=== PATIENT | male | born 1990 | race Hispanic/Latino ===

== ENCOUNTER 2020-06-04 16:17 | Observation (INO) | payer OTHER ==
[~2020-06-04] VITALS: Ht 180.3 cm; Wt 94.3 kg
[2020-06-04] MEDS ORDERED: ONDANSETRON 4MG/2ML VIAL IV ONE (16:45)
[2020-06-04] MEDS ORDERED: NS 1,000 ML IV ONE (16:45)
[2020-06-04 17:24] LABS: BASO % 0.6 % (0.0-1.0); EOS # 0.1 10^3/uL (0.0-0.5); EOS % 1.1 % (0.0-3.0); HEMATOCRIT 40.8 % (42.0-52.0); HEMOGLOBIN 13.5 g/dl (13.5-17.5); LYMPH # 1.4 10^3/uL (1.5-5.0); LYMPH % 26.1 % (24.0-44.0); MEAN CORPUSCULAR HEMOGLOBIN 29.8 pg (27.0-33.0); MEAN CORPUSCULAR HGB CONC 33.1 g/dl (32.0-36.5); MEAN CORPUSCULAR VOLUME 90.1 fl (80.0-96.0); MONO # 0.3 10^3/uL (0.0-0.8); MONO % 6.5 % (0.0-5.0); NEUTROPHILS # 3.4 10^3/uL (1.5-8.5); NEUTROPHILS % 64.7 % (36.0-66.0); PLATELET COUNT, AUTOMATED 252 10^3/uL (150-450); RED BLOOD COUNT 4.53 10^6/uL (4.30-6.10); WHITE BLOOD COUNT 5.2 10^3/uL (4.0-10.0)
[2020-06-04 17:26] LABS: RSV AMPLIFICATION NEGATIVE (NEGATIVE)
[2020-06-04 17:39] LABS: ALBUMIN 4.2 GM/DL (3.2-5.2); ALT/SGPT 62 U/L (12-78); BILIRUBIN,DIRECT 0.2 MG/DL (0.0-0.2); BILIRUBIN,TOTAL 0.6 MG/DL (0.2-1.0); BLOOD UREA NITROGEN 9 MG/DL (7-18); CALCIUM LEVEL 9.6 MG/DL (8.5-10.1); CARBON DIOXIDE LEVEL 32 MEQ/L (21-32); CHLORIDE LEVEL 105 MEQ/L (98-107); CREATININE FOR GFR 1.13 MG/DL (0.70-1.30); GLOMERULAR FILTRATION RATE > 60.0 (>60); GLUCOSE, FASTING 133 MG/DL (70-100); LIPASE 65 U/L (73-393); POTASSIUM SERUM 4.5 MEQ/L (3.5-5.1); SODIUM LEVEL 138 MEQ/L (136-145); TOTAL PROTEIN 8.1 GM/DL (6.4-8.2)
[2020-06-04] MEDS ORDERED: ISOVUE-370 76% 100ML VIAL As Ordered ONE (17:47)
--- NOTE | 2020-06-04 18:23 | REPVR ---
PROCEDURE INFORMATION: Exam: CT Abdomen And Pelvis With Contrast Exam date and time: 06/04/2020 5:45 PM Age: 30 years old Clinical indication: Abdominal pain; Additional info: L sided abd pain with n/v R/O infectious process TECHNIQUE: Imaging protocol: Computed tomography of the abdomen and pelvis with intravenous contrast. Radiation optimization: All CT scans at this facility use at least one of these dose optimization techniques: automated exposure control; mA and/or kV adjustment per patient size (includes targeted exams where dose is matched to clinical indication); or iterative reconstruction. Contrast material: ISOVUE 370; Contrast volume: 100 ml; Contrast route: INTRAVENOUS (IV); COMPARISON: No relevant prior studies available. FINDINGS: Liver: Normal. No mass. Gallbladder and bile ducts: Normal. No calcified stones. No ductal dilation. Pancreas: Normal. No ductal dilation. Spleen: Normal. No splenomegaly. Adrenal glands: Normal. No mass. Kidneys and ureters: Normal. No hydronephrosis. Stomach and bowel: Boggy appearance of the transverse and left colon with mural stratification and a suggestion of mild pericolonic inflammation. Findings suggest acute colitis to be evaluated clinically. No abscess demonstrated. Appendix: No evidence of appendicitis. Intraperitoneal space: Unremarkable. No free air. No significant fluid collection. Vasculature: Unremarkable. No abdominal aortic aneurysm. Lymph nodes: Unremarkable. No enlarged lymph nodes. Urinary bladder: Unremarkable as visualized. Reproductive: Unremarkable as visualized. Bones/joints: Mild central spinal stenosis L4-L5. Soft tissues: There is a small umbilical hernia. There is no evidence of incarceration. Small left inguinal hernia without incarceration. IMPRESSION: 1. Boggy appearance of the transverse and left colon with mural stratification and a suggestion of mild pericolonic inflammation. Findings suggest acute colitis to be evaluated clinically. No abscess demonstrated. 2. Small left inguinal hernia without incarceration. Electronically signed by: Alexandru Smith On 06/04/2020 18:23:20 PM
[2020-06-04] MEDS ORDERED: ONDA4TAB6 PO (18:28)
[2020-06-04] MEDS ORDERED: PROMETHAZINE INJ 25 MG/ML VIAL (J2550) IV ONE (19:15)
[2020-06-04] MEDS ORDERED: NS 1,000 ML IV SCH (20:30)
--- NOTE | 2020-06-04 21:43 | HPEPDOC ---
General Date of Admission Date of Service: Jun 04, 2020 Other Providers PCP is Mary Mujica on [address] Attending Physician: Shakeel Wright MD Chief Complaint The patient is a 30-year-old male admitted with a reason for visit of "I can't stop vomiting." Source: Patient Exam Limitations: No limitations History of Present Illness He was feeling well yesterday. This Am he woke with nausea and began vomiting. He has been vomiting intermittently all day and is unable to keep anything down. He has had several episodes of vomiting while in the ER including a large emesis during my interview. He denies any known sick contacts. Home Medications No Active Prescriptions or Reported Meds Allergies Coded Allergies: No Known Allergies (Unverified , 06/04/20) Past Medical History Medical History G6PD deficiency Surgical History none Family History Father was dx with colon cancer at 40 years of age Social History * Smoker: non-smoker Alcohol: other (only drinks on the weekends. He had two beers the night before admission.) Recent Travel/Sick Contacts: Denies: Recent travel lives in the [facility]. Has a roommate, but he is on leave at present. A-FIB/CHADSVASC A-FIB History Current/History of A-Fib/PAF?: No Current PO Anticoag Therapy: No Review of Systems Constitutional: Denies: Fever, Weight Loss ENT: Denies: Dysphagia, Sore Throat Skin: Denies: Rash, Jaundice Pulmonary: Denies: Dyspnea, Cough Cardiovascular: Denies: Chest Pain, Palpitations, Edema Gastrointestinal: Reports: Nausea, Vomiting, Abdominal Pain (L sided); Denies: Diarrhea, Melena, Hematochezia, Other Symptoms (hematemesis) Genitourinary: Denies: Dysuria, Hematuria Hematologic: Denies: Bleeding Excessively, Enlarged Lymph Nodes Endocrine: Denies: Polydipsia, Polyphagia, Polyuria Musculoskeletal: Denies: Neck Pain, Back Pain, Joint Pain, Muscle Pain, Spasms Neurological: Denies: Change in speech, Confusion Psych: Reports: Mood Normal; Denies: Depression, Memory Issues Physical Examination General Exam: Positive: Alert, Cooperative, No Acute Distress (he had an episode of vomiting while I was interviewing him) Eye Exam: Positive: PERRLA, Conjunctiva & lids normal; Negative: Sclera icteric ENT Exam: Positive: Atraumatic, Mucous membr. moist/pink, Pharynx Normal, Tympanic Membranes Normal, Ext Auditory Canal Nml, Other ENT (scattered palletal petechiae, likely related to recurrent vomiting) Neck Exam: Positive: Supple; Negative: Lymphadenopathy Chest Exam: Positive: Clear to auscultation, Normal air movement; Negative: Rhonchi, Wheezing Heart Exam: Positive: Rate Normal, Regular Rhythm, Normal S1, Normal S2; Negative: Murmurs, Rubs Abdomen Exam: Positive: BS Hypoactive, Soft, Tenderness (LUQ > LLQ), Hernia (he does have a L inguinal hernia on exam, but it is only noticable on cough/Valsalva. Not strangulated and not likely relevant to his ongoing issues.) ; Negative: Hepatospenomegaly Extremity Exam: Positive: Normal pulses; Negative: Cyanosis, Edema Skin Exam: Positive: Nl turgor and temperature; Negative: Rash Neuro Exam: Positive: Normal Gait, Normal Speech, Normal Tone Psych Exam: Positive: Mental status NL, Mood NL, Oriented x 3 Vital Signs Vital Signs Date Time Temp Pulse Resp B/P (MAP) Pulse Ox O2 Delivery O2 Flow Rate FiO2 06/04/20 17:04 78 117/74 (88) 80 130/77 (94) 88 126/74 (91) 06/04/20 16:18 98.0 20 98 Room Air Laboratory Data Labs 24H Laboratory Tests 2 06/04/20 16:32: Immature Granulocyte % (Auto) 1.0, Neutrophils (%) (Auto) 64.7, Lymphocytes (%) (Auto) 26.1, Monocytes (%) (Auto) 6.5H, Eosinophils (%) (Auto) 1.1, Basophils (%) (Auto) 0.6, Neutrophils # (Auto) 3.4, Lymphocytes # (Auto) 1.4L, Monocytes # (Auto) 0.3, Eosinophils # (Auto) 0.1, Basophils # (Auto) 0.0, Nucleated Red Blood Cells % (auto) 0.0, Anion Gap 1L, Glomerular Filtration Rate > 60.0, Calcium Level 9.6, Total Bilirubin 0.6, Direct Bilirubin 0.2, Aspartate Amino Transf (AST/SGOT) 29, Alanine Aminotransferase (ALT/SGPT) 62, Alkaline Phosphatase 64, Total Protein 8.1, Albumin 4.2, Albumin/Globulin Ratio 1.1, Lipase 65L 06/04/20 16:37: Coronavirus (COVID-19)(PCR) NEGATIVE, Influenza Type A (RT-PCR) NEGATIVE, Influenza Type B (RT-PCR) NEGATIVE, Respiratory Syncytial Virus (PCR) NEGATIVE CBC/BMP Laboratory Tests 06/04/20 16:32 Problems (1) Intractable vomiting with nausea Status: Acute Response to Treatment: Uncontrolled Discussed With: Nurse, Patient Problem Specific Plan: Monitor Clinically Problem Text: I am certain that this is self-limiting, however, right now his vomiting is not controlled and he can't take in PO. Will continue IV hydration and I ordered Zofran and Phenergan for the nausea. I also ordered a regular diet for when he feels up to it. Will monitor. (2) Viral gastroenteritis Status: Acute Discussed With: Nurse, Patient Problem Specific Plan: Monitor Clinically Problem Text: He is tender to palpation, but does not have an acute abdomen. This should be self-limiting. (3) Left inguinal hernia Status: Chronic Problem Text: This was a new dx to him. It was initially noted on CT and I confirmed it clinically. It is not relevant to his current admission, but he should address this with his PCP. As he has a physically active job, this will likely only get worse with time until it is repaired. (4) FHx: colon cancer Problem Text: There is no CT evidence of mass or obstruction. CT is not the best test for this, but we have no evidence of a problem. He should discuss the possibility of getting set up for a colonoscopy with his PCP as he is within 10 years of when his father was first diagnosed. Plan / VTE VTE Prophylaxis Ordered?: Yes Plan IVF: Continue Anticipated Discharge: Home (as soon as he stops vomiting and can keep food down) Advanced Directives: Health Care Proxy (HCP) (is verbally identified as his sister, Marta Gómez . We did explicitely discuss his CODE STATUS and he wishes to be FULL CODE.) Shakeel Wright MD Jun 04, 2020 21:43
[2020-06-04] MEDS ORDERED: ONDANSETRON 4MG/2ML VIAL IV PRN (21:45)
[2020-06-04] MEDS: NS 1,000 ML IV SCH (21:45)
[2020-06-04] MEDS ORDERED: ACETAMINOPHEN TAB 650MG DOSE (2X325MG) PO PRN (21:45)
[2020-06-04] MEDS ORDERED: PROMETHAZINE INJ 25 MG/ML VIAL (J2550) IV PRN (21:45)
[2020-06-05 00:23] VITALS: BP 114/70
[2020-06-05] MEDS: NS 1,000 ML IV SCH ×2 (05:03→14:23)
[2020-06-05 06:00] VITALS: BP 114/67
[2020-06-05 06:29] LABS: HEMATOCRIT 36.9 % (42.0-52.0); HEMOGLOBIN 12.2 g/dl (13.5-17.5); MEAN CORPUSCULAR HEMOGLOBIN 30.1 pg (27.0-33.0); MEAN CORPUSCULAR HGB CONC 33.1 g/dl (32.0-36.5); MEAN CORPUSCULAR VOLUME 91.1 fl (80.0-96.0); PLATELET COUNT, AUTOMATED 233 10^3/uL (150-450); RED BLOOD COUNT 4.05 10^6/uL (4.30-6.10); WHITE BLOOD COUNT 11.9 10^3/uL (4.0-10.0)
[2020-06-05 06:56] LABS: BLOOD UREA NITROGEN 8 MG/DL (7-18); CALCIUM LEVEL 8.2 MG/DL (8.5-10.1); CARBON DIOXIDE LEVEL 28 MEQ/L (21-32); CHLORIDE LEVEL 105 MEQ/L (98-107); CREATININE FOR GFR 1.14 MG/DL (0.70-1.30); GLOMERULAR FILTRATION RATE > 60.0 (>60); GLUCOSE, FASTING 109 MG/DL (70-100); POTASSIUM SERUM 3.3 MEQ/L (3.5-5.1); SODIUM LEVEL 141 MEQ/L (136-145)
[2020-06-05] MEDS ORDERED: KCL 20MEQ IN 100ML SWI (KRUN) 20 MEQ in IV 1 EA IV ONE ×2 (09:30)
[2020-06-05] MEDS: KCL 10MEQ/100ML SWI (KRUN) X 2 DOSES (20MEQ TOTAL) IV SCH ×4 (09:58→11:10)
--- NOTE | 2020-06-05 12:26 | IPNPDOC ---
Text Note Date of Service The patient was seen on 06/05/20. NOTE Patient was seen and examined by me. The patient states that his abdominal pain is slightly improved and his nausea has improved. PHYSICAL EXAMINATION: General: The patient is awake, alert, oriented x3, sitting up in the bed in no apparent distress. Head and Neck Exam: Extraocular muscles intact. Pupils equally round and reactive to light. Mucous membranes are moist. Neck is supple. There is no jugular venous distention (JVD). Cardiovascular: S1 and S2, regular rate. Respiratory: Clear auscultation bilaterally Abdomen: Tenderness in periumbilical and the left lower quadrant. No rebound, no guarding. Genitourinary: Deferred Central Nervous System (HEAT REGULATOR): No focal deficit. Power is 5/5 in all extremities. Labs reviewed Radiology reviewed (1) Intractable vomiting with nausea: Viral versus bacterial gastroenteritis. The patient still is having significant tenderness in the left lower quadrant. For that reason, I'll start him on IV Flagyl and IV Cipro. Diet as tolerated. We will continue to monitor. (2) Left inguinal hernia: This was a new dx to him. It was initially noted on CT . Are not relevant to his current condition gave him on the signs and symptoms of possible worsening of this hernia and what precautions. He needs to take along with his regular follow with his PCP. (3) FHx: colon cancer: There is no CT evidence of mass or obstruction. . He has been advised to follow with his PCP for a screening colonoscopy as per the recommendations. GI prophylaxis Disposition. Likely discharge in the next 24 hours. VS,Fishbone, I+O VS, Fishbone, I+O Laboratory Tests 06/04/20 16:32 06/05/20 05:23 Vital Signs Date Time Temp Pulse Resp B/P (MAP) Pulse Ox O2 Delivery O2 Flow Rate FiO2 06/05/20 06:00 98.6 73 16 114/67 (83) 98 Room Air I&O- Last 24 Hours up to 6 AM 06/05/20 06:00 Intake Total 2783 ml Output Total 500 ml Balance 2283 ml SEVEN ANAYA MD Jun 05, 2020 12:26
[2020-06-05] MEDS: CIPROFLOXACIN 400 MG in IV 1 EA IV SCH (13:17)
[2020-06-05 14:00] VITALS: BP 116/70
[2020-06-05] MEDS: metroNIDAZOLE 500 MG in IV 1 EA IV SCH ×2 (14:22→22:06)
[2020-06-05 22:00] VITALS: BP 121/72
[2020-06-06] MEDS: NS 1,000 ML IV SCH (00:18)
[2020-06-06] MEDS: CIPROFLOXACIN 400 MG in IV 1 EA IV SCH (01:05)
[2020-06-06] MEDS: metroNIDAZOLE 500 MG in IV 1 EA IV SCH (05:28)
[2020-06-06 06:00] VITALS: BP 109/65
[2020-06-06] MEDS ORDERED: FLAG500T PO (13:38)
[2020-06-06] MEDS ORDERED: CIPR-249 PO (13:38)
--- NOTE | 2020-06-06 13:41 | IPNPDOC ---
Text Note Date of Service The patient was seen on 06/06/20. NOTE Chief complaints Abdominal pain and nausea Final diagnosis Gastroenteritis History of present illness and Hospital course Patient was admitted for Intractable vomiting with nausea: Viral versus bacterial gastroenteritis. Pain has significantly subsided. He was started on IV Flagyl and IV Cipro. The patient nausea and vomiting has completely resolved. He has been able to tolerate the food and his tenderness in the left lower quadrant is very mild. This is thought to be possible bacterial colitis and for that reason, the patient will be sent home on 4 more days of Flagyl and Cipro. He was also found to have Left inguinal hernia: This was a new dx to him. It was initially noted on CT .. He has been advised to have regular follow with his PCP. The patient also has FHx: colon cancer: There is no CT evidence of mass or obstruction. . He has been advised to follow with his PCP for a screening colonoscopy as per the recommendations. PHYSICAL EXAMINATION: General: The patient is awake, alert, oriented x3, sitting up in the bed in no apparent distress. Head and Neck Exam: Extraocular muscles intact. Pupils equally round and reactive to light. Mucous membranes are moist. Neck is supple. There is no jugular venous distention (JVD). Cardiovascular: S1 and S2, regular rate. Respiratory: Clear auscultation bilaterally Abdomen: No rebound, no guarding. Very mild tenderness in the left lower quadrant Genitourinary: Deferred Central Nervous System ([employer] PROFESSOR): No focal deficit. Power is 5/5 in all extremities. Mediictations. As per discharge reconciliation medication list Activity as tolerated Diet. 2 g sodium diet Follow-up appointments. PCP in 1 week. Condition on discharge. Patient is medically optimized for discharge Discharge disposition: Home Total time spent on this discharge including coordination of care, review of chart documentation and actual patient contact is around 35 minutes VS,Fishbone, I+O VS, Fishbone, I+O Vital Signs Date Time Temp Pulse Resp B/P (MAP) Pulse Ox O2 Delivery O2 Flow Rate FiO2 06/06/20 06:00 98.0 64 18 109/65 (80) 99 Room Air I&O- Last 24 Hours up to 6 AM 06/06/20 06:00 Intake Total 3527.5 ml Output Total 860 ml Balance 2667.5 ml SEVEN ANAYA MD Jun 06, 2020 13:41
[2020-06-06 14:00] VITALS: BP 119/75
== END 2020-06-06 15:35 | disposition home or self-care (01) ==
LOC: M ED 16:17 → M ED INP 21:42 → M MSPAV 06-05 00:23
PROVIDERS: ADMIT Family Medicine; ATTEND Internal Medicine
DX: K52.9 Noninfective gastroenteritis and colitis, unspecified (principal); D75.A Glucose-6-phosphate dehydrogenase (G6PD) deficiency without anemia; K40.90 Unilateral inguinal hernia, without obstruction or gangrene, not specified as recurrent; Z80.0 Family history of malignant neoplasm of digestive organs
CPT/HCPCS: 36415; 74177; 80048; 80076; 83690; 85025; 85027; 87631; 96361; 96365; 96366; 96367; 96375; 96376; 99284; J0744; J2405; Q9967